=== PATIENT | female | born 1950 | race Caucasian/White ===

== ENCOUNTER 2017-12-19 16:49 | Emergency (ER) | payer OTHER ==
--- NOTE | 2017-12-19 17:32 | ED Physician Documentation ---
PD HPI HEENT - Stated complaint Stated Complaint: RT SIDE HEAD SWELL/PX - Chief complaint Chief Complaint: Heent - History obtained from History obtained from: Patient - History of Present Illness Timing - onset: How many weeks ago (3) Timing - duration: Weeks (3) Timing - details: Gradual onset (noted some pain in mouth few weeks ago and some pain right mandible/TMJ area. More recently has noted swelling right submandibular area and in front of ear. Tender to touch. No rash. Has had persistent ulcerative sores in mouth and gums/tongue.), Still present (the pain from right ear to jaw is intense and comes in short jolts/jabs of pain just on right.) Location: Right ear, Throat, Other (right jaw/face area) Worsens: Swalllowing Associated symptoms: Swollen nodes (right neck), Headache. No: Fever, Congestion, Rhinorrhea, Unable to swallow, Facial swelling Similar symptoms before: Has not had sx before Recently seen: Clinic (was started on new med 4 months ago and has been doing okay with it. No other new meds.) Review of Systems Constitutional: reports: Myalgias. denies: Fever, Chills Eyes: denies: Decreased vision, Photophobia Ears: reports: Ear pain. denies: Loss of hearing, Drainage/discharge, Tinnitus/ ringing Nose: denies: Rhinorrhea / runny nose, Congestion, Sinus pressure / pain Throat: reports: Oral lesions / sores. 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, Breast reduction HEENT: Tonsil/Adenoidectomy - Present Medications Home Medications: Ambulatory Orders Medication Instructions Recorded Confirmed Oxycodone HCl/Acetaminophen 1 tab PO 12/12/14 12/12/14 [Percocet 10-325 mg Tablet] Zolpidem Tartrate [Ambien] 5 mg PO DAILY 12/12/14 12/12/14 diazePAM [Valium] 5 mg PO TID PRN #15 tablet 12/12/14 glyBURIDE [Diabeta] 2.5 mg PO BID 12/12/14 12/12/14 predniSONE [Deltasone] 40 mg PO DAILY 5 Days tablet 12/12/14 Diphenhydramine HCl [Allergy 25 mg PO Q6H PRN #240 ml 12/19/17 Relief] Doxycycline Monohydrate 100 mg PO BID #14 tablet 12/19/17 Methocarbamol [Robaxin] 500 mg PO Q6H PRN #25 tablet 12/19/17 - Allergies Allergies/Adverse Reactions: Allergies Allergy/AdvReac Type Severity Reaction Status Date / Time ibuprofen Allergy Anaphylaxis Verified 12/19/17 17:09 - Social History Does the pt smoke?: No Smoking Status: Never smoker Does the pt drink ETOH?: Yes ETOH Use: Wine Does the pt have substance abuse?: No - Immunizations Immunizations are current?: Yes - POLST Patient has POLST: No PD ED PE NORMAL - Vitals Vital signs reviewed: Yes - General General: Alert and oriented X 3, No acute distress, Well developed/nourished - HEENT HEENT: Atraumatic, PERRL, EOMI, Ears normal, Moist mucous membranes, Dentition benign. No: Pharynx benign (posteriorly appears okay. The buccal mucosa, lower gingiva and side of tongue with few isolated ulcers with yellowish base. Right anterior mild adenopathy and there is tender preauricular node. No mastoid area redness nor tenderness to palpation. TM and canal are normal on right. ) - Neck Neck: Supple, no meningeal sign - Cardiac Cardiac: RRR, No murmur - Respiratory Respiratory: Clear bilaterally - Abdomen Abdomen: Soft, Non tender - Derm Derm: Normal color, Warm and dry - Neuro Neuro: Alert and oriented X 3, No motor deficit, Normal speech Results - Vitals Vitals: Oxygen O2 Source Room air PD MEDICAL DECISION MAKING - ED course Complexity details: considered differential (facial pain right TMJ area and around ear shooting to right mandible sound c/w trigeminal neuralgia, but the mouth sores and lymph node enlargement would not be consistent with that. No noted abscess/ no tenderness of mastoid/ no rash noted such as shingles to suggest other nerve irritation reasons. Will treat for infection and see how much improvement.), d/w patient - Sepsis Event Vital Signs: Oxygen O2 Source Room air Departure - Departure Disposition: 01 Home, Self Care Clinical Impression: Stomatitis, Preauricular lymphadenopathy, Facial pain, acute Condition: Stable Record reviewed to determine appropriate education?: Yes Instructions: ED Maximilian Sore Follow-Up: [facility] [Provider Group] Prescriptions: Diphenhydramine HCl [Allergy Relief] 25 mg PO Q6H PRN #240 ml PRN Reason: Pain Doxycycline Monohydrate 100 mg PO BID #14 tablet Methocarbamol [Robaxin] 500 mg PO Q6H PRN #25 tablet PRN Reason: Spasms Comments: The mouth sores and the swollen lymph node suggest a bacterial infection. We will treated with doxycycline twice daily for a week. He can use Robaxin muscle relaxant to try to help with spasming around the jaw muscles. Also use Benadryl liquid periodically in the mouth to help with numbing the sores. See how much improvement there is a 1 next few days to week. The pain on the right jaw also sounds potentially like a nerve irritation called trigeminal neuralgia but that typically when have mouth sores or swollen lymph node too. We should therefore treated as infection first. Discharge Date/Time: 12/19/17 18:27
[2017-12-19] MEDS ORDERED: diphenhydrAMINE ELIXIR 25 MG/10 ML UDC PO STA (18:05)
[2017-12-19] MEDS ORDERED: METHOCARBAMOL 500 MG TABLET PO STA (18:05)
[2017-12-19] MEDS ORDERED: DOXYCYCLINE 100 MG TABLET PO STA (18:05)
[2017-12-19 18:27] VITALS: BP 128/72
== END 2017-12-19 18:27 | disposition home or self-care (01) ==
LOC: ED 16:49
DX: K12.1 Other forms of stomatitis (principal); R59.0 Localized enlarged lymph nodes; G50.1 Atypical facial pain; R68.84 Jaw pain; E11.9 Type 2 diabetes mellitus without complications; M06.9 Rheumatoid arthritis, unspecified; Z79.52 Long term (current) use of systemic steroids
CPT/HCPCS: 99283; A9270

== ENCOUNTER 2020-06-13 16:14 | Outpatient (CLI) | payer OTHER | END 2020-06-13 16:15 | disposition left against medical advice (07) | LOC: EMS 16:14 | PROVIDERS: ATTEND Surgery | DX: R06.02 Shortness of breath (principal); R07.1 Chest pain on breathing ==